=== PATIENT | female | born 1960 | race Caucasian/White ===

== ENCOUNTER → 2021-08-18 | Day surgery (SDC) | payer OTHER ==
[~2021-08-18] VITALS: Ht 160 cm; Wt 69.8 kg
[~2021-08-18] MED LIST: AMLODIPINE-BEN1 EAC1 PO; BENTYL10 MG PO; CREON 12,000 U1 EACH PO; DITROPAN5 MG PO; MAGNESIUM250 MG PO; OMEPRAZOLE40 MG PO; VITAMIN B-1100 M1 PO; VITAMIN B-121000 MC1 PO; VITAMIN D35000 UNI1 PO; VITAMIN E400 UNIT PO
[2021-08-18 09:17] LABS: HCT 43.9 % (37.0-47.0); HGB 14.7 g/dl (12.5-16.0); MCH 29.2 pg (25.0-31.0); MCHC 33.5 g/dL (32.0-36.0); MCV 87.3 fL (78.0-100.0); MPV 10.4 fL (6.0-9.5); RBC 5.03 M/uL (4.20-5.40); RDW 12.6 % (11.5-14.0)
[2021-08-18 09:39] LABS: ALBUMIN 4.6 g/dL (3.4-5.0); BILIRUBIN - TOTAL 0.6 mg/dL (0.2-1.0); BUN/CREAT RATIO (CALC) 19.6 RATIO; CREATININE 0.56 mg/dL (0.51-0.95); GLOBULIN (CALCULATION) 4.1 g/dL; POTASSIUM 3.7 mmol/L (3.5-5.1); TOTAL PROTEIN 8.7 g/dL (6.4-8.2)
== END | disposition home or self-care (01) ==
LOC: FAS 08:18
PROVIDERS: Surgery
DX: K58.0 Irritable bowel syndrome with diarrhea (principal); R14.0 Abdominal distension (gaseous); R10.9 Unspecified abdominal pain; R11.0 Nausea; R15.0 Incomplete defecation; R19.8 Other specified symptoms and signs involving the digestive system and abdomen; R15.2 Fecal urgency; I10 Essential (primary) hypertension; Z90.49 Acquired absence of other specified parts of digestive tract; Z90.710 Acquired absence of both cervix and uterus
CPT/HCPCS: 36415; 80053; J1610; J2250; J2704; J7120